=== PATIENT | female | born 2000 | race Caucasian/White ===

== ENCOUNTER 2024-05-05 18:08 | Outpatient (CLI) | payer BC, SELFPAY ==
--- OUTSIDE RECORDS SUMMARY | 2024-05-06 08:03 | XMS_ITS | Encounter Summary ---
Author Organization [facility] Address [address], [place] [address] Care Team Providers Care Clarifier Name Role Phone Sav Arango PA-C Primary Care Provider [phone] Reason for Visit * Reason Comments Letter Encounter Details Date Type Department Care Team (Late st Contact Info) Description 02/17/2024 Telephone [facility] [address] [facility] Medicine [address] [place] [address] Sav Arango PA-C [address] [place] [address] Letter Social History Tobacco Use Types Packs/Day Years Used Date Smoking Tobacco: Never Smokeless Tobacco: Never Alcohol Use Standard Drinks/Week Comments Not Currently 0 (1 standard drink = 0.6 oz pur e alcohol) PHQ-2 Answer Date Recorded PHQ-2 Score 0 02/26/2023 Financial Resource Strain Answer Date R ecorded Is it hard for you to pay fo r the very basics like food, housing, medical care or heating? No 02/26/2023 Food Insecurity Answer Date Recorded Does your food run out before you have the money to buy more? No 02/26/2023 Transportation Needs Answer Date Record ed Does a lack of transportatio n keep you from your medical appointments or from getting your medications? No 023 Sex and Gender Information Value Date Recorded Sex Assigned at Not on file Gender Identity Not on file Sexual Orientation Not on file documented as of this encounter Nursing Notes * Isabel Fernández RN - 02/17/2024 3:32 PM CDT Letter written / released. Pt notified. * Sandra Grissom - 02/17/2024 3:27 PM CDT Forms & Letters What form/letter are you requesting? Letter/Other What form/letter are you requesting? Dr's note from UC Visit 02/16/24 Date of last appointment with PCP: 02/26/23 This form/letter is needed from: Sharlene Mejía MD How will you be submitting this form/letter to us? Requesting letter from clinician/clinic Return to: Patient Return method: MyChart/Online Patient Services (OPS) Additional comments (related to the above concern): Pt states she needs a 's note from her UC Visit 02/16/24. Please assist Preferred communication method: Phone Call. Is it okay to leave a detailed message on your voicemail? Yes documented in this encounter Plan of Treatment Not on file documented as of this encounter Visit Diagnoses Not on filedocumented in this encounter Care Teams Clarifier Relationship Specialty Start Date End Date Sav Arango PA-C [address] [place] [address] PCP - General Physician Bun Icer 02/26/23 documented as of this encounter
--- OUTSIDE RECORDS SUMMARY | 2024-05-06 08:03 | XMS_ITS | Encounter Summary ---
Author Organization [facility] Address [address], [place] [address] Care Team Providers Care Leather Finisher Name Role Phone Sav Arango PA-C Primary Care Provider [phone] Reason for Visit * Reason Comments Medication Questions Encounter Details Date Type Department Care Team (Late st Contact Info) Description 02/17/[address] [facility] [address] [place] [address] Unassigned, Provider [address] [place] [address] Medication Questions Social History Tobacco Use Types Packs/Day Years [...] Notes * Isabel Fernández RN - 02/17/2024 2:17 PM CDT Spoke with pt. She verbalized understanding. No further questions. * Isabel Fernández RN - 02/17/2024 2:14 PM CDT Images from the original note were not included. Sharlene Mejía MD Pn Nurse Pool5 minutes ago (2:06 PM) SM My apologies. That is a part of my standard discharge instructions for bronchitis that I use because I often do send a script for albuterol. In her case I did not because I did not hear any wheezing on exam. I should have deleted that part of the discharge instructions. If she feels she is short of breath and or wheezing I can send a script for an albuterol inhaler. SKM * Mami Saavedra - 02/17/2024 1:36 PM CDT Medications - Med Change / Question Is this a medication change or a general question? Med Question What is your question or concern? Pt was at on 02/15, her discharge papers said she is supposed to have albuterol inhaler, but nothing was sent to pharmacy, please call her back What is the name and dose of the medication? Albuterol inhaler How often do you take it? As needed Who prescribed it? Sharlene Mejía, prescribed other medicine but this was not at pharmacy If a prescription is needed, patient would like it filled at the pharmacy listed in Medication Management. Preferred communication method: Phone Call. Is it okay to leave a detailed message on your voicemail? Yes Is there anything else I can help you with today? documented in this encounter Plan of Treatment Not on file documented as of this encounter Visit Diagnoses Not on filedocumented in this encounter Care Teams Leather Finisher Relationship Specialty Start Date End Date Sav Arango PA-C [address] [place] [address] PCP - General Physician Welder Production Line Combination 02/26/23 documented as of this encounter
--- OUTSIDE RECORDS SUMMARY | 2024-05-06 08:03 | XMS_ITS | Encounter Summary ---
Author Organization [facility] Address [address], [place] [address] Care Team Providers Care Inspector Hot Forgings Name Role Phone Sav Arango PA-C Primary Care Provider [phone] Encounter Details Date Type Department Care Team (Late st Contact Info) Description 02/20/2024 Telephone [facility] [address] Family Medicine [address] [place] [address] Sav Arango PA-C [address] [place] [address] Social History Tobacco Use Types Packs/Day Years [...] as of this encounter Nursing Notes * Shena Lopez, RN - 02/20/2024 1:01 PM CDT Pt's mother notified of prescription * Shena Lopez RN - 02/20/2024 12:57 PM CDT Images from the original note were not included. Jimmy Frye, MANSI Please call in an albuterol inhaler 2 puffs every 4 hours as needed with no refills to the patient's preferred pharmacy. * Alejandrina Ramos RN - 02/20/2024 11:10 AM CDT Patient was evaluated by Dr. Memo Mejía at [facility] on 02/16/24 and provider is currently out of the clinic. Please advise. * Isabel Juarez RN - 02/20/2024 10:57 AM CDT Clinician: Review and advise Patient/care services manager request: Medication question Specific Request: Mom calling to report that inhaler was never called in as was told by provider when seen in on 02/16/24. Looking to get RX for inhaler sent to pharmacy on file Per provider notes from visit on 02/16/24, the following was noted:An albuterol inhaler has alsobeen prescribed for your wheezing. Take 2 puffs every 4 hours as needed if you find that with it you can breathe more easily, cough less or cough less harshly. You can stop taking it when you are feeling better. Mom states that pharmacy never received an order for inhaler and feels that pt might benefit from this what with having bronchitis and now COVID. Pharmacy verified. * Gretchen Blunt - 02/20/2024 10:52 AM CDT documented in this encounter Plan of Treatment Not on file documented as of this encounter Visit Diagnoses Not on filedocumented in this encounter Care Teams Inspector Hot Forgings Relationship Specialty Start Date End Date Sav Arango PA-C [address] [place] [address] PCP - General Physician Mottler Machine Feeder 02/26/23 documented as of this encounter
--- OUTSIDE RECORDS SUMMARY | 2024-05-06 08:03 | XMS_ITS | Encounter Summary ---
Author Organization [facility] Address [address], [place] [address] Care Team Providers Care Sales Development Manager Name Role Phone Sav Arango PA-C Primary Care Provider Reason for Visit * Reason Comments HOARSENESS Cough Encounter Details Date Type Department Care Team (Late st Contact Info) Description 02/16/2024 11:20 AM CDT Office Visit [facility] [address] [place] [address] Sharlene Mejía MD [address] [place] [address] Acute bronchitis, unspecified organism Social History Tobacco Use Types Packs/Day Years [...] on file documented as of this encounter Last Filed Vital Signs Vital Sign Reading Time Taken Comments Blood Pressure 116/75 02/16/2024 11:09 AM CDT Pulse 86 02/16/2024 11:09 AM CDT Temperature 37.1 ??C (98.8 ??F) 02/16/2024 11:09 AM C DT Respiratory Rate 16 02/16/2024 11:09 AM CDT Oxygen Saturation 100% 02/16/2024 11:09 AM CDT Inhaled Oxygen Concentration - - Weight - - Height - - Body Mass Index - - documented in this encounter Patient Instructions * Patient Instructions* Sharlene Mejía MD - 02/16/2024 11:20 AM CDT The modern definition of bronchitis is inflammation of the airways typically caused by a viral infection, so an antibiotic won't make it better. The inflammation makes the cough worse, and the cough makes the inflammation worse. We typically treat this with steroids which reduces the swelling and mucus production in the airway so you can breath more freely and cough less, and the cough can resolve. Prednisone is the steroid medication. terminal system operator use of steroids can have significant complications but short term use typically has only mild side effects. Some people may feel wired or restless, warm and flushed, and increased appetite is common. Take the medication with food to decrease stomach irritation and decrease salt intake as it can cause some fluid retention. If you are having trouble sleeping you can take some benadryl at bedtime. Do not take ibuprofen while you are taking the prednisone as they are very similar and can both bother the stomach. You can take tylenol if needed for pain or fever. An albuterol inhaler has also been prescribed for your wheezing. Take 2 puffs every 4 hours as needed if you find that with it you can breathe more easily, cough less or cough less harshly. You can stop taking it when you are feeling better. You should start to notice some improvement in several days and gradually get better over the course of the medication. When you finish the medication the cough may not be totally gone but should continue to improve and resolve soon there after. If it does not please don't hesitate to be seen again. If you are not improving as expected also please be seen again. * Attachments The following attachments cannot be sent through Care Everywhere. * Bronchitis ([place]) documented in this encounter Progress Notes * Sharlene Mejía MD - 02/16/2024 11:20 AM CDT [facility] Patient: Carie Michael Date of : 2000 (23 y.o.) Subjective Chief Complaint: Chief Complaint Patient presents with HOARSENESS Cough Nursing Notes: Tamiko George RN 02/16/24 1110 Signed Carie Michael is a 23 y.o.female presents to the Urgent Care for HOARSENESS and Cough Pt here with over one week of symptoms- cough was dry now becoming productive, hard time sleeping at night, hoarseness, some shortness of breath when speaking, sinus congestion; Last fever was Sunday. Home covid test negative , no sick contacts Home tx- robitussin , ibuprofen Patient requests an excuse letter for work/school: No History of Present Illness: Carie Michael is a 23 y.o.female. Patient complains of symptoms of a URI. Onset of symptoms was 8 days ago. Symptoms include congestion, sore throat, fever, and cough. Patient denies: continued fever . gradually worsening since that time. Cough: productive of green/yellow sputum, with wheezing, with shortness of breath Adverse Drug Reactions: Lactose Medications: benzonatate, gabapentin, meclizine, norethindrone (contraceptive), and predniSONE Social History: Social History Tobacco Use Smoking status: Never Smokeless tobacco: Never Vaping Use Vaping status: Never Used Substance Use Topics Alcohol use: Not Currently Drug use: Not on file Review of Systems: Review of Systems is negative except as noted above. Objective Physical Exam: Vital Signs: BP 116/75 (BP Location: Left Arm, BP Cuff Size: Regular) Pulse 86 Temp 37.1 ??C (98.8 ??F) (Oral) Resp 16 SpO2 100% General: Appears alert and non distressed, She appears non toxic. Blood pressure 116/75, pulse 86, temperature 37.1 ??C (98.8 ??F), temperature source Oral, resp. rate 16, SpO2 100%. HEENT: Head normocephalic and atraumatic Eyes Normal, conjunctiva normal without injection. PERRL. Ears: Right TM normal Left TM normal, external auditory canals without drainage. Throat: mild erythema, no peritonsillar masses or swelling. Neck: Soft, without cervical lymphadenopathy, no meningeal signs. Chest: normal air entry, no rhonchi and wheezes. Heart: HS normal with no murmurs. Laboratory Testing: No results found for any visits on 02/16/24. Radiology: No results found. MDM: no evidence of bacterial infection, fever has resolved. She has some shortness of breath so will treat for bronchitis. Interventions: Orders Placed This Encounter predniSONE (DELTASONE) 20 MG tablet benzonatate (TESSALON) 200 MG capsule Assessment 1. Acute bronchitis, unspecified organism Plan Patient Discharge Medications & Instructions: Medications Prescribed this Visit Disp Refills Start End predniSONE (DELTASONE) 20 MG tablet 20 Tablet 0 02/16/2024 02/21/2024 Take 2 Tablets (40 mg) by mouth two times a day for 5 days. Oral benzonatate (TESSALON) 200 MG capsule 30 Capsule 0 02/16/2024 02/26/2024 Take 1 Capsule (200 mg) by mouth three times a day as needed for Cough for up to 10 days. Oral Patient Instructions The modern definition of bronchitis is inflammation of the airways typically caused by a viral infection, so an antibiotic won't make it better. The inflammation makes the cough worse, and the cough makes the inflammation worse. We typically treat this with steroids which reduces the swelling and mucus production in the airway so you can breath more freely and cough less, and the cough can resolve. Prednisone is the steroid medication. residential use of steroids can have significant complications but short term use typically has only mild side effects. Some people may feel wired or restless, warm and flushed, and increased appetite is common. Take the medication with food to decrease stomach irritation and decrease salt intake as it can cause some fluid retention. If you are having trouble sleeping you can take some benadryl at bedtime. Do not take ibuprofen while you are taking the prednisone as they are very similar and can both bother the stomach. You can take tylenol if needed for pain or fever. An albuterol inhaler has also been prescribed for your wheezing. Take 2 puffs every 4 hours as needed if you find that with it you can breathe more easily, cough less or cough less harshly. You can stop taking it when you are feeling better. You should start to notice some improvement in several days and gradually get better over the course of the medication. When you finish the medication the cough may not be totally gone but should continue to improve and resolve soon there after. If it does not please don't hesitate to be seen again. If you are not improving as expected also please be seen again. Sharlene Mejía MD documented in this encounter Nursing Notes * Tamiko George RN - 02/16/2024 11:20 AM CDT Carie Michael is a 23 y.o.female presents to the Urgent Care for HOARSENESS and Cough Pt here with over one week of symptoms- cough was dry now becoming productive, hard time sleeping at night, hoarseness, some shortness of breath when speaking, sinus congestion; Last fever was Sunday. Home covid test negative , no sick contacts Home tx- robitussin , ibuprofen Patient requests an excuse letter for work/school: No documented in this encounter Plan of Treatment Not on file documented as of this encounter Visit Diagnoses Diagnosis Acute bronchitis, unspecified organism documented in this encounter Care Teams Sales Development Manager Relationship Specialty Start Date End Date aSv Arango PA-C [address] [place] [address] PCP - General Physician Sales Representative Marine [employer] 02/26/23 documented as of this encounter
--- OUTSIDE RECORDS SUMMARY | 2024-05-06 08:03 | XMS_ITS | Clinical Summary ---
Author Organization [facility] Address [address] [place] [address] Care Team Providers Care Panel Builder Name Role Phone Clinic, [facility] ider Davina Ang AuD Unavailable Unavaila Tamiko Scales AuD Unavailable [phone] Allergies No known active allergies Medications Medication Sig Dispensed Refills Start Date End Date Status melatonin 3 MG tablet Take 1 tablet by mouth At Bedtime. Active BUSPIRONE HCL PO Active Active Problems Patient Care Coordination No te Formatting of this note migh t be different from the original. [email or web address] Problem Noted Date Diagnosed Date HL (hearing loss) 05/28/2012 Resolved Problems Problem Noted Date Diagnosed Date Resolved Date Ankle sprain and strain 08/21/201409/21 Abnormality of gait 08/21/2014 10/16/19 15 Social History Tobacco Use Types Packs/Day Years Used Date Smoking Tobacco: Never Smokeless Tobacco: Never Adolescent Education Answer Date Record ed Getting School Help Needed Not on file 04/17 Sex and Gender Information Value Date Recorded Sex Assigned at Not on file Gender Identity Not on file Sexual Orientation Not on file Last Filed Vital Signs Vital Sign Reading Time Taken Comments Blood Pressure 144/100 08/20/2022 11:35 AM RESEARCH AIDE Pulse 94 08/20/2022 11:35 AM RESEARCH AIDE Temperature 36.3 ??C (97.4 ??F) 08/20/2022 11:[address] Respiratory Rate 16 08/20/2022 11:35 AM RESEARCH AIDE Oxygen Saturation 100% 08/20/2022 11:35 AM RESEARCH AIDE Inhaled Oxygen Concentration - - Weight 54.4 kg (120 lb) 08/07/2021 7:08 PM RESEARCH AIDE Height 154.9 cm (5' 1) 08/07/2021 7:08 PM RESEARCH AIDE Body Mass Index 22.67 08/07/2021 7:08 PM RESEARCH AIDE Plan of Treatment Health Maintenance Due Date Last Done Comments ADVANCE CARE PLANNING 2001 ANNUAL REVIEW OF HM ORDERS 2001 CHLAMYDIA SCREENING 2001 YEARLY PREVENTIVE VISIT 2001 HIV SCREENING 2016 HEPATITIS C SCREENING 11/28/2019 HPV IMMUNIZATION (2 - 3-dose series) 03/26/2023 02/26/2023 PHQ-2 (once per calendar year) 2023 COVID-19 Vaccine ( season) 2024 07/20/2021, 12/14/2020, 11/19/2020 INFLUENZA VACCINE (#1) 2024 , 08/08/2013, 08/01/2012, Additional history exists PAP 07/19/2026 07/19/2023 DTAP/TDAP/TD IMMUNIZATION (8 - Td or Tdap) 02/26/2033 02/26/2023, 01/13/2013, 03/07/2007, Additional history exists HEPATITIS B IMMUNIZATION Completed 003, 06/17/2002, 2001, Additional history exists Pneumococcal Vaccine: Pediatrics (0 to 5 Years) and At-Risk Patients (6 to 64 Years) Aged Out 05/08/2003, 06/17/2002, 04/28/2002, Additional history exists No longer eligible based on patient's age to complete this topic MENINGITIS IMMUNIZATION Aged Out 01/13/2013 No l onger eligible based on patient's age to complete this topic RSV MONOCLONAL ANTIBODY Aged Out No l onger eligible based on patient's age to complete this topic Medical Devices Implanted Type Area Cable Installation Manager Device Identifier Shelf Expiration Date Model / Serial / Lot Cochlear/Ear Implant-08/29/19 12 Implanted:01/2012 by Diego Holt (Quantity not on file) Cochlear/Ear Implant / SOPHONO? ? ALPHA 2 MPO / Description:Done at [facility] August 2011 Procedures Procedure Name Priority Date/Time Associated Diagnosis Comments GYNECOLOGIC CYTOLOGY Routine 07/19/2023 10:17 AM RESEARCH AIDE Encounter for gynecological examination (general) (routine) without abnormal findings from Last 3 Months or Most Recently Relevant to Health Maintenance Results * Gynecologic Cytology (PAP) (07/19/2023 10:17 AM RESEARCH AIDE) Interpretation Negative for Intraepithelial Lesion or Malignancy (NILM) 07/24/2023 3:29 PM RESEARCH AIDE [facility] Comment Papanicolaou Test Limitations: Cervical cytology is a screening test with limited sensitivity, and regular screening is critical for cancer prevention. Pap tests are primarily effective for the diagnosis/prevent ion of squamous cell carcinoma, not adenocarcinoma or other cancers. 07/24/2023 3:29 PM RESEARCH AIDE [facility] Specimen Adequacy Satisfactory for evaluation, endocervical/coles sformation zone component present 07/24/2023 3:29 PM RESEARCH AIDE [facility] Clinical Information none 07/24/2023 3:29 PM RESEARCH AIDE [facility] LMP/Menopause Date 08/13/22 07/24/2023 3:29 PM RESEARCH AIDE [facility] Reflex Testing Yes if ASCUS 07/24/19 24 3:29 PM RESEARCH AIDE [facility] Previous Abnormal? No 07/24/2023 3:29 PM RESEARCH AIDE [facility] Previous Abnormal Diagnosis Hasn't had one 07/24/2023 3:29 PM RESEARCH AIDE [facility] Performing Labs The technical component of this testing was completed at [facility] 07/24/2023 3:29 PM RESEARCH AIDE [facility] Brushing CERVIX UTERI STRUCTURE / Unknown 07/19/2023 10:17 AM RESEARCH AIDE 07/19/2023 1:54 PM RESEARCH AIDE Meera [facility] [address], [address] [place] [address], [facility] [phone] from Last 3 Months or Most Recently Relevant to Health Maintenance Care Teams Panel Builder Relationship Specialty Start Date End Date Clinic, [place] [address] PCP - General 08/07/21 [place] [address] Software Test Engineer Audiology 04/16/23 Tamiko Martinez AuD [address] [place] [id number] Software Test Engineer Audiology 04/16/23
--- OUTSIDE RECORDS SUMMARY | 2024-05-06 08:03 | XMS_ITS | Clinical Summary ---
Author Organization [facility] Address [address], [place] [address] Care Team Providers Care Production Manufacturing Worker Name Role Phone Sav Arango PA-C Primary Care Provider [phone] Source Comments You are receiving this document as you are listed as the primary care provider,follow-up provider, or the patient has been referred to you for consultation.This is in compliance with the Medicare and[facility] EHR Incentive Program,which states Providers who transition their patient to another setting of careor provider of care or refers their patient to another provider of care shouldprovide summary care record for each transition of care or referral. [email or web address] Allergies Active Allergy Reactions Criticality Noted Date Comments Lactose Nausea,Other, see comments 4 Medications Medication Sig Dispensed Refills Start Date End Date Status Norethindrone, Contraceptive, (MICRONOR) 0.35 MG tablet Take 1 Tablet (0.35 mg) by mouth daily. 01/03/2023 Active gabapentin (NEURONTIN) 300 MG capsule Take 2 Capsules (600 mg) by mouth daily at bedtime. 01/15/2023 Active meclizine (ANTIVERT) 12.5 MG tablet TAKE 1 TABLET BY MOUTH NEEDED FOR VERTIGO. MAX OF 2 PER DAY Active ALBUterol sulfate HFA 108 (90 Base) MCG/ACT inhaler Inhale 2 Puffs every 4 hours as needed for Wheezing. 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 [address] [place], [place] [phone] Unassigned, Provider Medication Questions 02/16/2024 11:20 AM CDT Office Visit [facility] K[facility] [address] [place] [address] Sharlene Mejía MD Acute bronchitis, unspecified organism from Last 3 Months Immunizations Name Administration Dates Next Due 9vHPV (Gardasil 9) 02/26/2023 DTaP 03/07/2007, 2,04/28/2002,2001 DTaP/Hib 05/08/2003 Flu Vac Preserv Free (3+yrs) 05/05/2009,07/27/19 07 Flu Vac Preserv Free (6-35 mo) 07/13/2003 HepB Ped/Adol (0-18 yrs) 09/26/2002,2001 HepB, Unspecified Formulation 09/26/2002, 002,2001 Hib (ActHIB) 06/17/2002,04/28/2002,01/27/2002 IPV (Polio) 03/07/2007, 3,04/28/2002,2001 Influenza IIV4 (Quadrivalent ) 0.5mL (57746) 05/05/2020 Influenza LAIV (Nasal, 2-49 yrs) 08/08/2013,04/22,06/06/2007 Influenza LAIV3 2-49 years (Flumist) 08/01/2012, 03/23/2011,07/01/2010 Influenza, Unspecified Formulation 05/05,05/08/2008,06/06/2007,2006,07/13/2003 MCV4 (Menactra) 01/13/2013 MMR 12/23/2002 MMRV (ProQuad) 03/07/2007 Moderna Monovalent 12+ 07/20/2021 Pfizer Monovalent 12+ Purple Top 12/14/2020,04 Pneumococcal 7, PED 05/08/2003, 2,04/28/2002,2001 Tdap 02/26/2023,01/13/2013 Varicella 12/23/2002 Social History Tobacco Use Types Packs/Day Years Used Date Smoking Tobacco: Never Smokeless Tobacco: Never Tobacco Cessation:Counseling Given: Not Answered Alcohol Use Standard Drinks/Week Comments Not Currently [...] CDT Inhaled Oxygen Concentration - - Weight 56.2 kg (124 lb) 02/26/2023 2:33 PM CDT Height 157.5 cm (5' 2.01) 02/26/2023 2:33 PM CD T Body Mass Index 22.67 02/26/2023 2:33 PM CDT Plan of Treatment Health Maintenance Due Date Last Done Comments Cervical Cancer Screening Due 2001 Chlamydia 2001 Hep C Screening (Preventive Services) 2001 HIV Screening (Preventive Services) 2017 HPV Vaccine (2 - 3-dose series) 03/26/2023 02/26/2023 Adult Preventive Visit 02/27/2024 02/26/2023 COVID-19 Vaccine ( season) 2024 07/20/2021, 12/14/2020, 11/19/2020 Influenza (#1) 2024 07/19/2023, 04/22, 08/08/2013, Additional history exists DTaP/Tdap/Td (8 - Tdap) 02/26/2033 02/27/20 23, 01/13/2013, 03/07/2007, Additional history exists Zoster/Shingles (1 of 2) 11/28/2051 HepB Completed 09/26/2002, 01/2003, 06/17/2002, Additional history exists Hib Completed 05/08/2003, 05/24, 04/28/2002, Additional history exists Pneumococcal Aged Out 05/08/2003, 05/24, 04/28/2002, Additional history exists No longer eligible based on patient's age to complete this topic IPV (Polio) Completed 03/07/2007, 01/2003, 04/28/2002, Additional history exists Varicella Completed 03/07/2007, 12/23/2002 MCV4 Aged Out 01/13/2013 No longer eligi ble based on patient's age to complete this topic HepA Aged Out No longer eligi ble based on patient's age to complete this topic RSV Aged Out No longer eligi ble based on patient's age to complete this topic Care Teams Production Manufacturing Worker Relationship Specialty Start Date End Date Sav Arango PA-C [address] [place] [address] PCP - General Physician Lining Cutter 02/26/23
--- OUTSIDE RECORDS SUMMARY | 2024-05-06 08:03 | XMS_ITS | Encounter Summary ---
Author Organization [facility] Address [address], [place] [address] Care Team Providers Care Microsoft Developer Name Role Phone Sav Arango PA-C Primary Care Provider Reason for Visit * Reason Comments COVID Encounter Details Date Type Department Care Team (Late st Contact Info) Description 02/19/2024 Telephone [place] [address] [facility] [address] [place] [address] Sav Arango PA-C [address] [place] [address] COVID Social History Tobacco Use Types Packs/Day Years [...] as of this encounter Nursing Notes * Pesta, Sandra R, RN - 02/19/2024 10:56 AM CDT Images from the original note were not included. Home/Clinic Test: Home: Patient called to report positive home COVID-19 test. Patient has symptoms. Date of onset of symptoms: 02/18/2024 Current symptoms consist of: cough, fatigue, sore throat. Progression of symptoms: worsened If patient has previously tested positive within the last 90 days and is experiencing new symptoms,clinical evaluation is recommended to determine reinfection. Family was given and able to verbalize home isolation instructions for patients that have tested positive for COVID. Isolation Information: Remain home until you've not had a fever for 24 hours without fever reducing medicine AND all your symptoms have improved. Stay connected with your doctor via video visit or reschedule your in-person visit to a video visit(if applicable). You may return to clinic or outpatient procedure areas for routine care once 10 days have passed since symptom onset. Visit [employer] for our latest on masking. While ill, isolate yourself from others as much as possible by staying in a specific room away from people and pets in your home, use a separate bathroom if available, wear a mask if you need to be around others in your home. COVID-19 Tests can remain positive for several weeks after your initial test. If you develop new symptoms, please contact us to speak to a nurse or your clinician. Evaluation of Reinfection: N/A How to protect yourself and others: Wash your hands often, and frequently clean and disinfect surfaces. Cover all coughs and sneezes. Try to avoid touching your face. For the next 5 days,wear a mask any time you are around others, including in your home. Separate yourself from others in your home as much as possible by staying in a specific room or rooms, away from people and pets. You should not share dishes, drinking glasses, cups, eating utensils, towels, or bedding with otherpeople in your home. Clean all high touch surfaces in your home daily. It's important for you to watch for any worsening symptoms, especially if you are at a higher risk for getting very sick from COVID-19. Higher risk groups include people older than age 60 and people who have serious chronic medical conditions like heart disease, diabetes or lung disease. Pay attention to the speed of worsening symptoms. If your symptoms are gradually worsening and you're concerned, try a video visit or call your clinic. Normally symptoms worsen a bit before getting better. Seek care at an emergency room if these symptom suddenly or quickly worsen: Sudden worsening shortness of breath, sudden worsening wheezing, difficulty swallowing, slurred speech, facial numbness, new confusion or inability to arouse, persistent pain or pressure in the chest, leg swelling. Guidance for return to work: Before returning to work, you must contact your employer for return to work instructions. Guidance for return to sports for children: If your child had any of the following: a fever >4 days, was lethargic >7 days, had chills ormuscle aches/pains >7 days, OR hospitalized with COVID-19, an in- person visit is required. All other patients may be seen in person or via telemedicine. Patient Resources: Recommended Centers of Disease Control (CDC), [place] Department of Health ([facility]), and [employer] websites for further information on Coronavirus. Advised patient to review COVID-19 handout given to them at time of testing. COVID-19 Therapeutics: Risk Scores Covid Risk Score (Compiled) 0 Patient Age 0 BMI 0 0 Empty Metrics: Diabetes, CKD, Vascular, Asthma, Hypertension, Immune Comp, CLD, Disabilities, HIV, Mood, Immune Def, Wellness, Cancer, Blood Dis Current as of: 02/17/2024 4:07 PM 5 days from symptom onset = 02/22/2024 Is the patient established?Yes Is patient within 5 days of symptom onset? Yes: Has patient received any antivirals to treat COVID-19 within the past 90 days? No: Does patient have a CRS > 4? (Confirm eligibility requirements within standing order) No Patientnot eligible for treatment. If patient would like to consult clinician for Paxlovid prescription, it???s important to have the discussion with patients that do not meet the eligibility criteria that having a visit with a clinician does not guarantee that they will prescribe Paxlovid as it is unlikely they will benefit from Paxlovid and there may be a high cost associated with the prescription, upto $1400. Does patient have any questions? No Does patient need documentation as verification of their results? No The following advice may help if you have a fever, sore throat, cough, or sinus infection/pain. Please note that because COVID-19 is a viral infection, an antibiotic won???t soothe or treat the virus. Getting plenty of rest and drinking water to stay hydrated is kaplan to feeling better. , For adults only with sore throat: cahh-ypt-nwpjyer throat lozenges or anesthetic sprays can also help provide pain relief., For Adults only with a bothersome cough or congestion: A cough suppressant should only be used when you need a rest or break from your cough. Use an jhac-ulh-vfgphgd cough medication that contains dextromethorphan (such as Delsym??) sparingly., and Take a cough expectorant that contains guaifenesin (such as Mucinex??) for three days. This will thin mucus in your chest to make it easierto cough up. Avoid multi-symptom versions, which often have extra letters in their name (such as Mucinex DM??). Drinking water can also help to thin mucus and reduce congestion. It's important to allow your body to cough up mucus to get better. 02/19/2024, 10:58 AM * Sai Patel - 02/19/2024 10:52 AM CDT Symptoms Describe your symptoms (if pain, include location): Covid+, When did they start? 02/17 Additional comments (related to the above concern): Mother states Pt covid+ 02/17, sore throat, headache. Recently in UC and given prednisone. Nausea. Asking for paxlovid If a prescription is needed, patient would [...] on filedocumented in this encounter Care Teams Microsoft Developer Relationship Specialty Start Date End Date Sav Arango PA-C [address] [place] [address] PCP - General Physician Occupational Safety Specialist 02/26/23 documented as of this encounter
--- OUTSIDE RECORDS SUMMARY | 2024-05-06 08:03 | XMS_ITS | Clinical Summary ---
Author Organization [facility] Address [place], [place] [address] Care Team Providers Care Newspaper Inserter Name Role Phone [facility] Provider Allergies No known active allergies Medications Medication Sig Dispensed Refills Start Date End Date Status gabapentin (NEURONTIN) 300 mg capsule Take 600 mg by mouth. 03/28/2022 Active benzonatate (TESSALON) 200 mg capsuleIndications:U RI with cough and congestion Take 1 Capsule (200 mg) by mouth 3 times daily if needed for Cough. 15 Capsule 05/03/2022 Active fluticasone (50 mcg per actuation) nasal solution (FLONASE)Indications :URI with cough and congestion Inhale 1 Panora into affected nostril(s) once daily. 16 g 05/03/2022 Active Social History Tobacco Use Types Packs/Day Years Used Date Smoking Tobacco: Never Smokeless Tobacco: Never Alcohol Use Standard Drinks/Week Comments Not Currently 0 (1 standard drink = 0.6 oz pur e alcohol) Sex and Gender Information Value Date Recorded Sex Assigned at Not on file Gender Identity Not on file Sexual Orientation Not on file Obstetrics History Last Filed Vital Signs Vital Sign Reading Time Taken Comments Blood Pressure 134/83 05/03/2022 3:33 PM CDT Pulse 74 05/03/2022 3:33 PM CDT Temperature 36.7 ??C (98.1 ??F) 05/03/2022 3:33 PM CD T Respiratory Rate 16 05/03/2022 3:33 PM CDT Oxygen Saturation 97% 05/03/2022 3:33 PM CDT Inhaled Oxygen Concentration - - Weight 59 kg (130 lb) 05/03/2022 3:33 PM CDT Height 180.3 cm (5' 11) 05/03/2022 3:33 PM CDT Body Mass Index 18.13 05/03/2022 3:33 PM CDT Plan of Treatment Upcoming Encounters Date Type Department Care Team (Late st Contact Info) Description 05/09/2024 4:00 PM CDT Office Visit [facility] [address] [place] [address] Betty Diaz DO [address] [place] [address] Health Maintenance Due Date Last Done Comments Tdap 2012 Depression screening for age 12+ 2013 HIV for age 15-65 2016 HPV series for age 9-26 (1 - 3-dose series) 2016 BMI (ht and wt on same day) for age 18+ 11/28/2019 Hepatitis C screening for ag e 18-79 11/28/2019 Tetanus booster 2021 Pap test for age 21-65 2022 COVID-19 vaccine series (2022-24 season) 2023 07/20/2021, 12/14/2020, 11/19/2020 Influenza for age 9-49 03/23/2024 Pneumococcal series for age 6-64 Aged Out No longer eligible b ased on patient's age to complete this topic Care Teams Newspaper Inserter Relationship Specialty Start Date End Date [facility] - [address] [place] [address] PCP - General 05/03/22
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
--- OUTSIDE RECORDS SUMMARY | 2024-05-06 08:04 | XMS_ITS | Encounter Summary ---
Author Organization [facility] Address [address] [place] [address] Care Team Providers Care Magento Developer Name Role Phone [facility], [facility] Primary [facility] ider Davina Ang AuD Unavailable Unavaila ble Tamiko Martinez AuD Unavailable [phone] Encounter Details Date Type Department Care Team (Late st Contact Info) Description 08/08/2021 Documentation Only INTERFACED REPORT Unknown, Provider Social History Tobacco Use Types Packs/Day Years Used Date Smoking Tobacco: Never Smokeless Tobacco: Never Sex and Gender Information Value Date Recorded Sex Assigned at Not on file Gender Identity Not on file Sexual Orientation Not on file COVID-19 Exposure Response Date Recorded In the last month, have you been in contact with someone who was confirmed or suspected to have Coronavirus / COVID-19? No / Unsure 08/07/2021 6:57 PM YARD ASSISTANT documented as of this encounter Plan of Treatment Not on file documented as of this encounter Visit Diagnoses Not on filedocumented in this encounter Care Teams Magento Developer Relationship Specialty Start Date End Date [facility], [place] [address] PCP - General 08/07/21 [place] [address] Irrigator [facility] Audiology 04/16/23 Tamiko Martinez AuD [address] [place] [address] Irrigator [facility] 04/16/23 documented as of this encounter
--- OUTSIDE RECORDS SUMMARY | 2024-05-06 08:04 | XMS_ITS | Referral Summary ---
Author Organization [facility] Address [address] [place] [address] Care Team Providers Care Product Lister Name Role Phone [facility], [facility] ider Davina Ang AuD Unavailable Unavaila Tamiko Scales AuD Unavailable [phone] Allergies No known active allergies Medications Medication Sig Dispensed Refills Start Date End Date Status melatonin 3 MG tablet Take 1 tablet by mouth At Bedtime. Active BUSPIRONE HCL PO Active Active Problems Patient Care Coordination No te Formatting of this note migh t be different from the original. [email or web address] Problem Noted Date Diagnosed Date HL (hearing [...] Comments Blood Pressure 144/100 08/20/2022 11:35 AM WOOD SETTER Pulse 94 08/20/2022 11:35 AM WOOD SETTER Temperature 36.3 ??C (97.4 ??F) 08/20/2022 11:[address] Respiratory Rate 16 08/20/2022 11:35 AM WOOD SETTER Oxygen Saturation 100% 08/20/2022 11:35 AM WOOD SETTER Inhaled Oxygen Concentration - - Weight 54.4 kg (120 lb) 08/07/2021 7:08 PM WOOD SETTER Height 154.9 cm (5' 1) 08/07/2021 7:08 PM WOOD SETTER Body Mass Index 22.67 08/07/2021 7:08 PM WOOD SETTER Plan of Treatment Not on file Medical Devices Implanted Type Area Agent Licensing Clerk Device Identifier Shelf Expiration Date Model / Serial / Lot Cochlear/Ear Implant-08/29/19 12 Implanted:01/2012 by Diego Holt (Quantity not on file) Cochlear/Ear Implant / SOPHONO? ? ALPHA 2 MPO / Description:Done at [facility] August 2011 Procedures Procedure Name Priority Date/Time Associated Diagnosis Comments GYNECOLOGIC CYTOLOGY Routine 07/19/2023 10:17 AM WOOD SETTER Encounter for gynecological examination (general) (routine) without abnormal findings from Last 3 Months or Most Recently Relevant to Health Maintenance Results * Gynecologic Cytology (PAP) (07/19/2023 10:17 AM WOOD SETTER) Interpretation Negative for Intraepithelial Lesion or Malignancy (NILM) 07/24/2023 3:29 PM WOOD SETTER [facility] Comment Papanicolaou Test Limitations: Cervical cytology is a screening test with limited sensitivity, and regular screening is critical for cancer prevention. Pap tests are primarily effective for the diagnosis/prevent ion of squamous cell carcinoma, not adenocarcinoma or other cancers. 07/24/2023 3:29 PM WOOD SETTER [facility] Specimen Adequacy Satisfactory for evaluation, endocervical/coles sformation zone component present 07/24/2023 3:29 PM WOOD SETTER [facility] Clinical Information none 07/24/2023 3:29 PM WOOD SETTER [facility] LMP/Menopause Date 08/13/22 07/24/2023 3:29 PM WOOD SETTER [facility] Reflex Testing Yes if ASCUS 07/24/19 3:29 PM WOOD SETTER [facility] Previous Abnormal? No 07/24/2023 3:29 PM WOOD SETTER [facility] Previous Abnormal Diagnosis Hasn't had one 07/24/2023 3:29 PM WOOD SETTER [facility] Performing Labs The technical component of this testing was completed at [facility] 07/24/2023 3:29 PM WOOD SETTER [facility] Brushing CERVIX UTERI STRUCTURE / Unknown 07/19/2023 10:17 AM WOOD SETTER 07/19/2023 1:54 PM WOOD SETTER [facility] [address] [facility], [address] [place] [address], [facility] [phone] from Last 3 Months or Most Recently Relevant to Health Maintenance Care Teams Product Lister Relationship Specialty Start Date End Date Clinic, [place] [address] PCP - General 08/07/21 [place] [address] Enrollment Services Vice President Audiology 04/16/23 Tamiko Martinez AuD [address] [place] [address] Enrollment Services Vice President Audiology 04/16/23
== END 2024-05-05 18:09 | disposition home or self-care (01) ==
LOC: NFLDREF 05-06 08:01
DX: N89.8 Other specified noninflammatory disorders of vagina (principal); N76.0 Acute vaginitis; B96.89 Other specified bacterial agents as the cause of diseases classified elsewhere; B37.31 Acute candidiasis of vulva and vagina; Z11.3 Encounter for screening for infections with a predominantly sexual mode of transmission
CPT/HCPCS: 87491; 87591

== ENCOUNTER 2024-05-06 15:30 | Outpatient (CLI) | payer BC, SELFPAY ==
--- OUTSIDE RECORDS SUMMARY | 2024-05-07 08:47 | XMS_ITS | Clinical Summary ---
Author Organization [facility] Address [place], [place] [address] Care Team Providers Care Residential Program Worker Name Role Phone [facility] Primary [...] :URI with cough and congestion Inhale 1 [place] into affected nostril(s) once daily. 16 g [...] Description 05/09/2024 4:00 PM CDT Office Visit [facility] [address] [place] [address] Betty Diaz DO [address] [place] [address] Health Maintenance Due Date Last Done Comments Tdap 2012 Depression screening for age 12+ 2013 HIV for age 15-65 2016 HPV series for age 9-26 (1 - 3-dose series) 2016 BMI (ht and wt on same day) for age 18+ 11/28/2019 Hepatitis C screening for ag e 18-79 11/28/2019 Tetanus booster 2021 Pap test for age 21-65 2022 COVID-19 vaccine series ( season) 2024 07/20/2021, 12/14/2020, 11/19/2020 Influenza for age 9-49 03/23/2024 Pneumococcal series for age 6-64 Aged Out No longer eligible b ased on patient's age to complete this topic Care Teams Residential Program Worker Relationship Specialty Start Date End Date [facility] - [address] [place] [address] PCP - General 05/03/22
--- OUTSIDE RECORDS SUMMARY | 2024-05-07 08:47 | XMS_ITS | Referral Summary ---
Author Organization [place] Address [address] [place] [address] Care Team Providers Care Occupational Therapist Aide Name Role Phone Clinic, [facility] Pediatric Primary Care [facility] ider Davina Ang AuD Unavailable Unavaila Tamiko Scales AuD Unavailable [phone] Allergies No known active allergies Medications Medication Sig Dispensed Refills Start Date End Date Status melatonin 3 MG tablet Take 1 tablet by mouth At Bedtime. Active BUSPIRONE HCL PO Active Active Problems Patient Care Coordination No te Formatting of this note migh t be different from the original. [email or web address] Problem Noted Date Diagnosed Date HL (hearing [...] Comments Blood Pressure 144/100 08/20/2022 11:35 AM OYSTER PLANTER Pulse 94 08/20/2022 11:35 AM OYSTER PLANTER Temperature 36.3 ??C (97.4 ??F) 08/20/2022 11:[address] Respiratory Rate 16 08/20/2022 11:35 AM OYSTER PLANTER Oxygen Saturation 100% 08/20/2022 11:35 AM OYSTER PLANTER Inhaled Oxygen Concentration - - Weight 54.4 kg (120 lb) 08/07/2021 7:08 PM OYSTER PLANTER Height 154.9 cm (5' 1) 08/07/2021 7:08 PM OYSTER PLANTER Body Mass Index 22.67 08/07/2021 7:08 PM OYSTER PLANTER Plan of Treatment Not on file Medical Devices Implanted Type Area Studio Coordinator Device Identifier Shelf Expiration Date Model / Serial / Lot Cochlear/Ear Implant-08/29/19 12 Implanted:01/2012 by Diego Holt (Quantity not on file) Cochlear/Ear Implant / SOPHONO? ? ALPHA 2 MPO / Description:Done at [facility] August 2011 Procedures Procedure Name Priority Date/Time Associated Diagnosis Comments GYNECOLOGIC CYTOLOGY Routine 07/19/2023 10:17 AM OYSTER PLANTER Encounter for gynecological examination (general) (routine) without abnormal findings from Last 3 Months or Most Recently Relevant to Health Maintenance Results * Gynecologic Cytology (PAP) (07/19/2023 10:17 AM OYSTER PLANTER) Interpretation Negative for Intraepithelial Lesion or Malignancy (NILM) 07/24/2023 3:29 PM OYSTER PLANTER [facility] Comment Papanicolaou Test Limitations: Cervical cytology is a screening test with limited sensitivity, and regular screening is critical for cancer prevention. Pap tests are primarily effective for the diagnosis/prevent ion of squamous cell carcinoma, not adenocarcinoma or other cancers. 07/24/2023 3:29 PM OYSTER PLANTER [facility] Specimen Adequacy Satisfactory for evaluation, endocervical/coles sformation zone component present 07/24/2023 3:29 PM OYSTER PLANTER [facility] Clinical Information none 07/24/2023 3:29 PM OYSTER PLANTER [facility] LMP/Menopause Date 08/13/22 07/24/2023 3:29 PM OYSTER PLANTER [facility] Reflex Testing Yes if ASCUS 07/24/19 3:29 PM OYSTER PLANTER [facility] Previous Abnormal? No 07/24/2023 3:29 PM OYSTER PLANTER [facility] Previous Abnormal Diagnosis Hasn't had one 07/24/2023 3:29 PM OYSTER PLANTER [facility] Performing Labs The technical component of this testing was completed at [facility] 07/24/2023 3:29 PM OYSTER PLANTER [facility] Brushing CERVIX UTERI STRUCTURE / Unknown 07/19/2023 10:17 AM OYSTER PLANTER 07/19/2023 1:54 PM OYSTER PLANTER Meera [facility] [address] [facility] [address] [place] [address], [facility] [phone] from Last 3 Months or Most Recently Relevant to Health Maintenance Care Teams Occupational Therapist Aide Relationship Specialty Start Date End Date Clinic, [place] [address] PCP - General 08/07/21 [place] [address] Senior Marketing Manager Audiology 04/16/23 Tamiko Martinez AuD [address] [place] [address] Senior Marketing Manager Audiology 04/16/23
--- OUTSIDE RECORDS SUMMARY | 2024-05-07 08:47 | XMS_ITS | Encounter Summary ---
Author Organization [facility] Address [address], [place] [address] Care Team Providers Care Accounts Adjustable Clerk Name Role Phone Sav Arango PA-C Primary Care Provider [phone] Reason for Visit * Reason Comments Letter Encounter Details Date Type Department Care Team (Late st Contact Info) Description 02/17/2024 Telephone [place] [address] Family Medicine [address] [place] [address] Sav Arango PA-C [address] [place] [address] Letter Social History Tobacco Use [...] on filedocumented in this encounter Care Teams Accounts Adjustable Clerk Relationship Specialty Start Date End Date Sav Arango PA-C [address] [place] [address] PCP - General Physician Blog Writer 02/26/23 documented as of this encounter
--- OUTSIDE RECORDS SUMMARY | 2024-05-07 08:47 | XMS_ITS | Encounter Summary ---
Author Organization [facility] Address [address] [place] [address] Care Team Providers Care Sample Display Preparer Name Role Phone [facility], [facility] Primary [facility] ider Davina Ang AuD Unavailable Unavaila ble Tamiko Martinez AuD Unavailable Encounter Details Date Type Department Care Team [...] COVID-19? No / Unsure 08/07/2021 6:57 PM FINISHING SUPERVISOR documented as of this encounter Plan of Treatment Not on file documented as of this encounter Visit Diagnoses Not on filedocumented in this encounter Care Teams Sample Display Preparer Relationship Specialty Start Date End Date [facility], [place] [address] PCP - General 08/07/21 [place] [address] Sign Letterer Audiology 04/16/23 Tamiko Martinez AuD [address] [place] [address] Sign Letterer Audiology 04/16/23 documented as of this encounter
--- OUTSIDE RECORDS SUMMARY | 2024-05-07 08:47 | XMS_ITS | Encounter Summary ---
Author Organization [facility] Address [address] [address] Care Team Providers Care Wire Wrapping Machine Operator Name Role Phone Sav Arango PA-C Primary Care Provider Reason for Visit * Reason Comments COVID Encounter Details Date Type Department Care Team (Late st Contact Info) Description 02/19/2024 Telephone [place] [address] Family Medicine [address] [place] [address] Sav Arango PA-C [address] [place] [address] COVID Social History Tobacco Use [...] days have passed since symptom onset. Visit [facility] for our latest on masking. While ill, [...] Resources: Recommended Centers of Disease Control (CDC), [place] Department of Health ([facility]), and [employer] websites for further information on Coronavirus. Advised [...] , For adults only with sore throat: cjse-ffz-ybnewdi throat lozenges or anesthetic sprays can also help provide pain relief., For Adults only with a bothersome cough or congestion: A cough suppressant should only be used when you need a rest or break from your cough. Use an jypl-bxg-kyrqgrn cough medication that contains dextromethorphan (such as [...] on filedocumented in this encounter Care Teams Wire Wrapping Machine Operator Relationship Specialty Start Date End Date Sav Arango PA-C [address] [place] [address] PCP - General Physician Orchestra Musician 02/26/23 documented as of this encounter
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
--- OUTSIDE RECORDS SUMMARY | 2024-05-07 08:47 | XMS_ITS | Encounter Summary ---
Author Organization [facility] Address [address], [place] [address] Care Team Providers Care Skein Winder Name Role Phone Sav Arango PA-C Primary Care Provider [phone] Reason for Visit * Reason Comments Medication Questions Encounter Details Date Type Department Care Team (Late st Contact Info) Description 02/17/2024 Telephone [facility] [address] [place] [address] Unassigned, Provider [address] [place] [address] Medication Questions Social History Tobacco Use Types [...] on filedocumented in this encounter Care Teams Skein Winder Relationship Specialty Start Date End Date Sav Arango PA-C [address] [place] [address] PCP - General Physician Manager Of Revenue 02/26/23 documented as of this encounter
--- OUTSIDE RECORDS SUMMARY | 2024-05-07 08:47 | XMS_ITS | Encounter Summary ---
Author Organization [facility] Address [address], [place] [address] Care Team Providers Care Poker In Name Role Phone Sav Arango PA-C Primary Care Provider Reason for Visit * Reason Comments HOARSENESS Cough Encounter Details Date Type Department Care Team (Late st Contact Info) Description 02/16/2024 11:20 AM CDT Office Visit [facility] [address] [place] [address] Sharlene Mejía MD [address] [place] [address] Acute bronchitis, unspecified organism Social [...] can resolve. Prednisone is the steroid medication. double bottom driver use of steroids can have significant complications [...] be sent through Care Everywhere. * Bronchitis (Greek) documented in this encounter Progress Notes * [...] can resolve. Prednisone is the steroid medication. care home use of steroids can have significant complications [...] organism documented in this encounter Care Teams Poker In Relationship Specialty Start Date End Date Sav Arango PA-C [address] [place] [address] PCP - General Physician County Supervisor 02/26/23 documented as of this encounter
--- OUTSIDE RECORDS SUMMARY | 2024-05-07 08:47 | XMS_ITS | Encounter Summary ---
Author Organization [facility] Address [address], [place] [address] Care Team Providers Care Parcel Post Delivery Name Role Phone Sav Arango PA-C Primary Care Provider Encounter Details Date Type Department Care Team (Late st Contact Info) Description 02/20/2024 Telephone [place] [address] Family Medicine [address] [place] [address] Sav Arango PA-C [address] [place] [address] Social History Tobacco Use Types [...] 10:57 AM CDT Clinician: Review and advise Patient/healthcare social worker request: Medication question Specific Request: Mom calling [...] on filedocumented in this encounter Care Teams Parcel Post Delivery Relationship Specialty Start Date End Date Sav Arango PA-C [address] [place] [address] PCP - General Physician Fiberglass Finisher 02/26/23 documented as of this encounter
--- OUTSIDE RECORDS SUMMARY | 2024-05-07 08:47 | XMS_ITS | Clinical Summary ---
Author Organization [place] Address [address] [place] [address] Care Team Providers Care Paint Sprayer Sandblaster Name Role Phone Clinic, [facility] Pediatric Primary Care [facility] ider Davina Ang AuD Unavailable Unavaila Tamiko Scales AuD Unavailable [phone] Allergies No known active allergies Medications Medication Sig Dispensed Refills Start Date End Date Status melatonin 3 MG tablet Take 1 tablet by mouth At Bedtime. Active BUSPIRONE HCL PO Active Active Problems Patient Care Coordination No te Formatting of this note migh t be different from the original. [email or web address] Problem Noted Date Diagnosed Date HL (hearing [...] Comments Blood Pressure 144/100 08/20/2022 11:35 AM METAL WELDER Pulse 94 08/20/2022 11:35 AM METAL WELDER Temperature 36.3 ??C (97.4 ??F) 08/20/2022 11:[address] Respiratory Rate 16 08/20/2022 11:35 AM METAL WELDER Oxygen Saturation 100% 08/20/2022 11:35 AM METAL WELDER Inhaled Oxygen Concentration - - Weight 54.4 kg (120 lb) 08/07/2021 7:08 PM METAL WELDER Height 154.9 cm (5' 1) 08/07/2021 7:08 PM METAL WELDER Body Mass Index 22.67 08/07/2021 7:08 PM METAL WELDER Plan of Treatment Health Maintenance Due Date [...] this topic Medical Devices Implanted Type Area School Bus Driver Device Identifier Shelf Expiration Date Model / Serial / Lot Cochlear/Ear Implant-08/29/19 12 Implanted:01/2012 by Diego Holt (Quantity not on file) Cochlear/Ear Implant / SOPHONO? ? ALPHA 2 MPO / Description:Done at [facility] August 2011 Procedures Procedure Name Priority Date/Time Associated Diagnosis Comments GYNECOLOGIC CYTOLOGY Routine 07/19/2023 10:17 AM METAL WELDER Encounter for gynecological examination (general) (routine) without abnormal findings from Last 3 Months or Most Recently Relevant to Health Maintenance Results * Gynecologic Cytology (PAP) (07/19/2023 10:17 AM METAL WELDER) Interpretation Negative for Intraepithelial Lesion or Malignancy (NILM) 07/24/2023 3:29 PM METAL WELDER [facility] Comment Papanicolaou Test Limitations: Cervical cytology is a screening test with limited sensitivity, and regular screening is critical for cancer prevention. Pap tests are primarily effective for the diagnosis/prevent ion of squamous cell carcinoma, not adenocarcinoma or other cancers. 07/24/2023 3:29 PM METAL WELDER [facility] Specimen Adequacy Satisfactory for evaluation, endocervical/coles sformation zone component present 07/24/2023 3:29 PM METAL WELDER [facility] Clinical Information none 07/24/2023 3:29 PM METAL WELDER [facility] LMP/Menopause Date 08/13/22 07/24/2023 3:29 PM METAL WELDER [facility] Reflex Testing Yes if ASCUS 07/24/19 24 3:29 PM METAL WELDER [facility] Previous Abnormal? No 07/24/2023 3:29 PM METAL WELDER [facility] Previous Abnormal Diagnosis Hasn't had one 07/24/2023 3:29 PM METAL WELDER [facility] Performing Labs The technical component of this testing was completed at [facility] 07/24/2023 3:29 PM METAL WELDER [facility] Brushing CERVIX UTERI STRUCTURE / Unknown 07/19/2023 10:17 AM METAL WELDER 07/19/2023 1:54 PM METAL WELDER Meera [facility] [address], [address] [place] [address], [facility] [phone] from Last 3 Months or Most Recently Relevant to Health Maintenance Care Teams Paint Sprayer Sandblaster Relationship Specialty Start Date End Date Clinic, [place] [address] PCP - General 08/07/21 [place] [address] Cabinet Maker Audiology 04/16/23 Tamiko Martinez AuD [address] [place] [address] Cabinet Maker Audiology 04/16/23
--- OUTSIDE RECORDS SUMMARY | 2024-05-07 08:47 | XMS_ITS | Clinical Summary ---
Author Organization [facility] Address [address], [place] [address] Care Team Providers Care Agriculture Professor Name Role Phone Sav Arango PA-C Primary Care Provider [phone] Source Comments You are receiving this document as you are listed as the primary care provider,follow-up provider, or the patient has been referred to you for consultation.This is in compliance with the Medicare andProm[facility] Memorial Hospitalcaid EHR Incentive Program,which states Providers who transition their patient to another setting of careor provider of care or refers their patient to another provider of care shouldprovide summary care record for each transition of care or referral. [facility] Allergies Active Allergy Reactions Criticality Noted Date [...] Type Department Care Team Description 02/20/[address] [address] Sav Arango PA-C 02/19/[address] [address] Sav Arango PA-C COVID 02/17/[address] [address] Sav Arango PA-C Letter 02/17/2024 Telephone [facility] [address] [place], [place] [id number] Unassigned, Provider Medication Questions 02/16/2024 11:20 AM CDT Office Visit [facility] [address] [place] [address] Sharlene Mejía MD Acute bronchitis, [...] 03/07/2007, 3,04/28/2002,2001 Influenza IIV4 (Quadrivalent ) 0.5mL (80010) 05/05/2020 Influenza LAIV (Nasal, 2-49 yrs) 08/08/2013,04/22,06/06/2007 [...] age to complete this topic Care Teams Agriculture Professor Relationship Specialty Start Date End Date Sav Arango PA-C [address] [place] [address] PCP - General Physician Manufacturing Sr Engineer 02/26/23
== END 2024-05-06 15:31 | disposition home or self-care (01) ==
LOC: NFLDREF 05-07 08:44
DX: N89.8 Other specified noninflammatory disorders of vagina (principal); R30.0 Dysuria
CPT/HCPCS: 87086